=== PATIENT | male | born 1950 | race Caucasian/White ===

== ENCOUNTER 2017-04-09 16:38 | Emergency (ER) | payer OTHER ==
[~2017-04-09] VITALS: Ht 175.3 cm; Wt 110.0 kg
[2017-04-09 17:40] LABS: HEMATOCRIT 39.5 % (39.0-50.0); HEMOGLOBIN 14.1 g/dl (14.0-18.0); IMMATURE GRANULOCYTES 0.4 % (0.0-1.0); MEAN CELL VOLUME 99.7 fL CALC (80.0-100.0); MEAN CORPUSCULAR HGB 35.6 pG CALC (26.0-32.0); MEAN CORPUSCULAR HGB CONC 35.7 g/L CALC (32.0-36.0); NEUT# 1.49 thou/uL (1.82-7.42); RED BLOOD COUNT 3.96 mill/uL (4.70-6.10); RED CELL DISTRI WIDTH 14.5 % (11.5-15.5)
[2017-04-09 17:50] LABS: ALBUMIN 2.5 g/dL (3.2-5.0); ALKALINE PHOSPHATASE 123 u/l (38-126); AMYLASE 76 u/l (30-110); ANION GAP 13 (6-22 (CALC)); BILIRUBIN, TOTAL 5.5 mg/dL (0.0-1.4); BUN 19 mg/dL (8-23); BUN/CREATININE RATIO 20 (12-20 (CALC)); CALCIUM 8.2 mg/dL (8.4-10.2); CARBON DIOXIDE 24 mmol/l (22-30); CHLORIDE 97 mmol/l (95-108); CREATININE 0.9 mg/dL (0.7-1.3); GFR > 60 ML/MIN (>=60 (CALC)); GFR FOR AFR.AMER. > 60 ML/MIN (>=60 (CALC)); GLUCOSE 82 mg/dL (82-115); LIPASE 167 u/l (23-300); POTASSIUM 4.1 mmol/l (3.5-5.1); SGOT/AST 128 u/l (19-48); SGPT/ALT 97 u/l (11-66); SODIUM 130 mmol/l (137-146); TOTAL PROTEIN 5.7 g/dL (6.3-8.2)
[2017-04-09 18:01] LABS: MYOGLOBIN 132 ng/mL (0 - 121)
[2017-04-09 18:28] LABS: ACT PARTIAL THROMBO TIME 28.9 SECONDS (20.0-32.5); INTERNATIONAL NORMALIZED RATIO 1.3 RATIO (0.7-1.3); PROTHROMBIN TIME 14.7 SECONDS (9.0-12.5)
[2017-04-09] MEDS ORDERED: POTASSIUM99 MG PO (19:17)
[2017-04-09] MEDS ORDERED: LASIX 40 MG40 MG/TAB PO (19:18)
[2017-04-09] MEDS ORDERED: SPIRONOLACTONE50 MG PO (19:19)
[2017-04-09 20:55] VITALS: BP 98/52
--- NOTE | 2017-04-10 08:23 | NUR ---
PRELIMINARY BLOOD CULTURE RESULTS FAXED TO JONH MCGUIRE AT [facility] ICU [id number] AT 820 AM
== END 2017-04-09 20:55 | disposition short-term general hospital (02) | DRG 871 ==
LOC: ED 16:38
PROVIDERS: Emergency Medicine
DX: A41.9 Sepsis, unspecified organism (principal); K72.00 Acute and subacute hepatic failure without coma; R65.20 Severe sepsis without septic shock; K70.31 Alcoholic cirrhosis of liver with ascites; F10.11 Alcohol abuse, in remission
CPT/HCPCS: J0692